=== PATIENT | female | born 1950 | race Caucasian/White ===

== ENCOUNTER 2019-05-20 06:14 | Inpatient (IN) ==
[~2019-05-20 06:14] MED LIST: MORPHINE SULFATE 15 MG TABLET.SA PO PRN; ROPIVACAINE HCL/PF 100 MG, EPINEPHrine 0.2 MG, KETOROLAC TROMETHAMINE 30 MG in NORMAL S... IJ PRN; TRANEXAMIC ACID 1,000 MG in NORMAL SALINE 100 ML IV PRN; ceFAZolin SODIUM 1 GM VIAL IV PRN
[2019-05-20] MEDS: RINGER'S SOLUTION,LACTATED 1,000 ML IV PRN ×3 (07:02→09:00)
--- NOTE | 2019-05-20 07:27 | ANES ---
Anesthesia Pre Procedure Eval Vitals/Labs: Last Vital Signs Temp 36.0 C 05/20/19 06:30 Pulse 70 05/20/19 06:30 Resp 18 05/20/19 06:30 BP 148/78 05/20/19 06:30 Pulse Ox 99 05/20/19 06:30 HOME MEDICATIONS Hydrochlorothiazide [Hydrodiuril] 25 mg PO DAILY 01/31/15 [Last Taken 05/20/19] aspirin 81 mg tablet,delayed release 81 mg PO DAILY 05/16/18 [Last Taken 05/14/19] lisinopril 40 mg tablet 20 mg PO DAILY 05/16/18 [Last Taken 05/20/19] polyethylene glycol 3350 17 gram oral powder packet 17 g PO DAILY 05/16/18 [Last Taken 05/19/19] sucralfate 1 gram tablet 1 g PO DAILY PRN tab 05/16/18 [Last Taken Unknown] metoprolol succinate ER 25 mg tablet,extended release 24 hr 12.5 mg PO DAILY 90 Days #45 tab 05/22/18 [Last Taken 05/20/19] loratadine 10 mg tablet 10 mg PO DAILY 06/05/18 [Last Taken 05/19/19] Esomeprazole Magnesium [Nexium] 40 mg PO DAILY 10/09/18 [Last Taken 05/19/19] ibuprofen 800 mg tablet 800 mg PO BID-TID PRN 04/28/19 [Last Taken Unknown] Allergies/Adverse Reactions: Allergies Allergy/AdvReac Type Severity Reaction Status Date / Time Sulfa (Sulfonamide Allergy RASH Verified 05/20/19 06:31 Antibiotics) adhesive tape AdvReac rash, Verified 05/20/19 06:31 swelling venom-honey bee AdvReac swelling, Verified 05/20/19 06:31 [bee venom (honey bee)] rash - Planned Procedure Planned Procedure: Revision Left Knee Tibial Component Medication List Reviewed:: Yes Allergies Verified: Yes Medical History (Updated 10/21/18 @ 13:48 by Margarita Machuca LPN) Depression GERD (gastroesophageal reflux disease) Hypertension Surgical History (Updated 03/17/19 @ 12:12 by Madie Arriola) S/P trigger finger release Onset Date: Unknown lt ring H/O abdominoplasty H/O arthroplasty [facility] TKA April: left knee Dr. Gale 08/2016 patella H/O arthroscopy of knee Onset Date: ~1990 H/O section Onset Date: ~1973 1976 History of appendectomy History of carpal tunnel release bilateral 2000 History of cholecystectomy Onset Date: ~2004 History of hysterectomy Onset Date: ~1999 S/P left knee arthroscopy Onset Date: ~10/09/18 Dr. Smith: Left knee arthroscopy with partial synovectomy, debridement of lateral meniscus remnant h/o tmj surgery Family History (Last Reviewed 05/20/19 @ 07:26 by Jose Castillo CRNA) Father Alcohol abuse Depression Hypertension CVA (cerebral vascular accident) Asthma Emphysema lung Mother Arthritis Depression Heart disease Cancer Breast Hypertension Asthma Aunt Cancer Breast Grandmother Cancer Maternal breast Grandfather Cancer Brain maternal Brother Diabetes Hypertension - Family Anesthesia History Family History:: no untoward family reactions to anesthesia, no familial bleeding tendencies, no family history of clotting disorders, no family history of premature - Airway/Neck/Teeth Within Normal Limits:: Yes Denture Type: Full upper, Full lower Mallampatti Score: 2 Thyromental (T-M) distance: > 6 cm Mandibulo Hyoid distance: > 3 cm - Respiratory Smoking Status: Never smoker Discussed smoking cessation including day of surgery: No Sleep Apnea currently treated: No Sleep Apnea by current assessment: No Discussed Risks/Treatment of KESHAWN: No - Cardiovascular Tolerate Activity: Fair Heart Sounds: S1 & S2, Regular - Anesthesia Assessment and Plan ASA Class: PS, II Anesthesia Type Plan: Block - Left ultrasound guided adductor canal nerve block for postop analgesia, Spinal
[2019-05-20] MEDS ORDERED: MORPHINE SULFATE 2 MG/ML DISP.SYRIN IV PRN (10:02)
[2019-05-20] MEDS ORDERED: ONDANSETRON HCL/PF 2 MG/ML VIAL IV PRN (10:02)
[2019-05-20] MEDS ORDERED: MAG HYDROX/ALUMINUM HYD/SIMETH 30 ML UDC PO PRN (10:02)
[2019-05-20] MEDS ORDERED: MAGNESIUM HYDROXIDE 30 ML UDC PO PRN (10:02)
[2019-05-20] MEDS ORDERED: ZOLPIDEM TARTRATE 5 MG TABLET PO PRN (10:02)
[2019-05-20] MEDS ORDERED: ACETAMINOPHEN 500 MG TABLET PO PRN (10:02)
[2019-05-20] MEDS ORDERED: SUCRALFATE 1 G TABLET PO PRN (10:04)
--- NOTE | 2019-05-20 10:12 | OR ---
Operative Report - Dictated Report Narrative: DATE OF PROCEDURE: 05/20/2019 PHYSICIAN: Justus Smith MD COMMUNICATIONS ASSISTANT: Cole Ortega MD (provided an educated set of skilled hands that consisted with transfer, positioning, prepping, draping, traction, manipulation, irrigation, placement of implants, placement of instruments, closure of wounds, application of dressings, all of which could not be performed by the available surgical crew). PREOPERATIVE DIAGNOSIS: Pain, status post left total knee arthroplasty. POSTOPERATIVE DIAGNOSIS: Pain, status post left total knee arthroplasty. OPERATIONS AND PROCEDURES: Revision left tibial component, revision of surgical scar 24 cm. ANESTHESIA: Spinal plus regional plus periarticular local. ESTIMATED BLOOD LOSS: Minimal TOURNIQUET TIME: 110 minutes at 325 mmHg. SPECIMENS: Implants for disposal, tissue for acute inflammation, culture x1. COMPLICATIONS: None. RETAINED IMPLANTS: DePuy Attune size 5 revision cemented tibial baseplate rotating platform, revision tibial sleeve Porocoat fully coated 45 mm, revision press-fit stem 16 mm x 60 mm, Attune rotating platform insert size 6 x 10 mm crosslinked polyethylene. INDICATIONS FOR PROCEDURE: Mrs. Anaya is a 68-year-old female who underwent a rotating platform left total knee arthroplasty in the past at an outside facility. At the time she did not have a patella resurfaced and this was subsequently resurfaced that a second surgery. She continued to have persistent tibial knee pain which failed all conservative treatments. She was seen in clinic and was noted to have no instability or signs of malalignment. Radiographs were negative for loosening and she had a negative work-up for infection. Options for treatment were discussed including bracing, observation, and surgical revision. She wished to proceed with revision. The risks, benefits, and alternatives were discussed in clinic. The risk of , blood clots, bleeding, infection, nerve/tendon/blood vessel injury, malposition of implants, persistent pain, failure of implants, loosening, stiffness, need for additional procedures, and she wished to proceed. Consent was obtained in the clinic. PROCEDURE: After marking the correct extremity in the preoperative holding area, the patient was taken to the operating room. A timeout was performed. IV antibiotics consisting of Ancef was administered prior to procedure. A regional followed by spinal anesthetic was induced at my request by anesthesia. A Bolanos catheter was placed and a bump was placed under the left buttock. A well-padded tourniquet was applied to the left thigh. Left leg was then prepped and draped in standard sterile fashion. She was noted to have range of motion was 0 to 120 of flexion. After prepping and draping the leg in standard sterile fashion, exsanguinating the extremity and inflating the tourniquet to 325 mmHg, a previous anterior incision was excised over a length of 24 cm. Sharp dissection was carried through the skin. There were retained nonabsorbable sutures which were removed. The medial retinaculum was marked out and a paramedial arthrotomy was made. There was notable effusion, but no gross signs of purulence or infectious appearing tissues. A partial synovectomy was performed. The scar tissue was excised. The gutters were cleaned, and the previous polyethylene was excised. The knee was hyperflexed and attention was turned to the tibia. A series of osteotomes and saw was utilized in order to free the tissue to best of our abilities. The tibia was then removed. The implants revealed no signs of significant wear or damage. The entry reamer up to a size 16 tibial reamer was utilized in order to repair the tibial canal. An entry reamer for the implant as well as up to a 45mm broach was utilized which gave good stability with good fill of the proximal tibial metaphysis. The proximal tibia was then cleaned and cut in order to provide a flat surface. There was some mild disruption of the posterior and lateral bony cortical rinds, but an intact defect without any blowout of these areas. The trial tray size 5 was then impacted with the trial sleeve and this was secured with a punch. A series of inserts were utilized up to a size 10, which gave good stability in flexion and was able to reach maximal extension without hyperextension, stable to varus and valgus stressing as well as drawer. The patella tracked appropriately and overall, although there was some bone overhanging the lateral facet which was excised using the saw. At this point it was felt these were the appropriate implants. The implants were removed. The tissue was thoroughly irrigated with pulsatile saline irrigation. Prior to this, the tissue was sent to pathology for acute inflammation, was noted to have less than 5 neutrophils per high-powered field, and culture was also obtained and sent to pathology. Once the bone was thoroughly irrigated and dried, a periarticular joint injection of ropivacaine, Toradol, and epinephrine was placed. The cement was vacuum mixed per bid analyst's instructions. The implants were assembled on the back table, and cement was placed on the appropriate surfaces, avoiding any cement on the ingrown surface or the stems, and the implants were then impacted. Once the deena ent was fully cured, the extruded cement was removed. The final polyethylene insert was placed. The knee was again placed through range of motion and was able to reach full extension, flexion 120 degrees with appropriate tracking of the patella, and no instability. A drain was placed exiting superolaterally. The tourniquet was deflated. Hemostasis was obtained. Capsule was closed with interrupted #1 Vicryl. The deep tissues with 0 Vicryl, subcutaneous tissue with 3-0 Vicryl and 3-0 Monocryl, and the skin with a Preineo Dermabond dressing. A 4 x 4s, Sof-Rol and a full leg Layton was applied and the patient was awoken and transferred to postanesthesia care unit in stable condition. All sponge, needle, and instrument counts were correct prior to closing the wounds.
--- NOTE | 2019-05-20 10:23 | ANES ---
Post Anesthesia Discharge - Transfer of Care Transfer of Care handoff given to nurse: Yes - Discharge from PACU Discharge from PACU when meets criteria: Yes - Discharge to ASU Discharge to ASU-no complications/pt stable: Yes
--- NOTE | 2019-05-20 10:26 | ANES ---
Anesthesia Procedure Note Procedure Note: ANESTHESIA PROCEDURE NOTE Date of Procedure: 05/20/2019. Time of procedure: 729. Performed by: Jose Castillo CRNA [employer]: None. Preprocedure diagnosis: Left knee pain, status post left total knee arthroplasty. Post procedure diagnosis: Same. Procedure: Left ultrasound guided adductor canal block for postoperative analgesia. Indications: The patient is a 68-year-old female, requesting left ultrasound- guided abductor canal block for postoperative analgesia related to revision left tibial component. Findings: See below. Details of the procedure: The tissue over the intended target site was cleansed with ChloraPrepand draped in a sterile fashion. 2 ml Lidocaine 1 % was infiltrated to the skin and subcutaneous tissue at the intended target site. Under sterile technique and ultrasound guidance a 18-gauge Tuohy needle was inserted through the left sartorius muscle to the saphenous nerve just anterior and medial to the superficial femoral artery and vein. 15 mL's of 0.5% bupivacaine was injected after negative aspiration for blood. Needle tip and spread of local anesthetic surrounding the saphenous nerve was observed throughout the injection with real time ultrasound visualization. The Tuohy needle was then removed intact. No complications were noted. The images were retained in the Hospital medical database. EBL: Minimal. Fluids: N/A. Specimen: N/A. Post procedure condition: The patient tolerated the procedure well. No complications were noted. Thank you for this consultation. Jose Castillo CRNA
[2019-05-20] MEDS: DEXTROSE 5%-LACTATED RINGERS 1,000 ML IV PRN ×2 (11:02→20:20)
[2019-05-20] MEDS: ceFAZolin SODIUM 1 GM in DEXTROSE 5 % IN WATER 100 ML IV SCH ×6 (11:06→23:50)
[2019-05-20] MEDS: oxyCODONE HCL/ACETAMINOPHEN 1 TAB TABLET PO PRN ×4 (11:06→22:13)
[2019-05-20] MEDS: KETOROLAC TROMETHAMINE 15 MG/ML VIAL IV SCH ×3 (11:06→23:48)
[2019-05-20] MEDS ORDERED: SENNOSIDES/DOCUSATE SODIUM 1 TAB TABLET PO SCH (21:00)
[2019-05-20] MEDS ORDERED: MORPHINE SULFATE 15 MG TABLET.SA PO SCH (21:00)
[2019-05-21] MEDS: diphenhydrAMINE HCL 50 MG/ML VIAL IV PRN ×2 (02:01→06:31)
[2019-05-21] MEDS: KETOROLAC TROMETHAMINE 15 MG/ML VIAL IV SCH ×2 (04:47→11:55)
[2019-05-21 05:15] LABS: Hematocrit 32.9 % (37.0-47.0); Hemoglobin 10.8 gm/dL (12.5-16.0); Mean Cell Volume 93.2 fl (78-100); Mean Corpuscular Hemoglobin 30.6 pg (27-31); Mean Corpuscular Hgb Conc 32.8 g/dl (32-36); Mean Platelet Volume 9.8 fl (8-12.5); Platelet Count 146 K/mm3 (150-450); Red Blood Count 3.53 M/mm3 (4.2-5.4); Red Cell Distribution Width 12.8 % (11.5-14.0); White Blood Count 5.6 K/mm3 (4.0-10.5)
[2019-05-21 05:30] LABS: Anion Gap 7.6 mmol/L (6.8-13.8); BUN/Creatinine Ratio 9.3 (9.0-21.6); Calcium * 8.4 mg/dL (7.9-10.9); Carbon Dioxide 31.7 mmol/L (24-32.6); Estimated Creat Clear 56.3; Potassium 3.3 mmol/L (3.4-4.6)
[2019-05-21] MEDS: oxyCODONE HCL/ACETAMINOPHEN 1 TAB TABLET PO PRN (06:24)
[2019-05-21] MEDS ORDERED: PANTOPRAZOLE SODIUM 40 MG TABLET.EC PO SCH (07:00)
[2019-05-21] MEDS ORDERED: POTASSIUM CHLORIDE 20 MEQ TABLET.SA PO ONE (08:10)
[2019-05-21] MEDS ORDERED: POLYETHYLENE GLYCOL 3350 17 GM PACKET PO SCH (09:00)
[2019-05-21] MEDS ORDERED: HYDROCHLOROTHIAZIDE 25 MG TABLET PO SCH (09:00)
[2019-05-21] MEDS ORDERED: LISINOPRIL 20 MG TABLET PO SCH (09:00)
[2019-05-21] MEDS ORDERED: LORATADINE 10 MG TABLET PO SCH (09:00)
[2019-05-21] MEDS ORDERED: METOPROLOL SUCCINATE 25 MG TABLET.SA PO SCH (09:00)
[2019-05-21] MEDS ORDERED: ENOXAPARIN SODIUM 40 MG/0.4 ML SYRG SC SCH (09:02)
--- NOTE | 2019-05-21 14:54 | DS ---
(1) Acute blood loss anemia Problem: Acute (2) Status post revision of total replacement of left knee Problem: Acute (3) Hypertension Problem: Chronic (4) GERD (gastroesophageal reflux disease) Problem: Chronic (5) Depression Problem: Chronic Description of Stay: Mrs. Anaya was admitted to the floor after undergoing revision tibial component left total knee arthroplasty. Tolerated this well. Was admitted to the floor postoperatively for 24 hours of IV antibiotics, pain control, medical comanagement, and occupational and physical therapy. OT and PT were consulted to assist with activities of daily living and ambulation. Was made weightbearing as tolerated with range of motion as tolerated. Pain was initially controlled with IV regimen. This was transitioned to oral once tolerating a by mouth intake. Was resumed on home diet and medications. Had a Bolanos catheter inserted and the operating room which was discontinued on postoperative day 1. A drain was placed intraoperatively into the knee which was discontinued on postoperative day 1. Lovenox SCD and NINA hose were utilized for DVT prophylaxis. Vital signs remained stable to the hospital course. Serial labs were obtained which showed a final hemoglobin of 10.8 grams. BMP was reviewed and was stable. Physical examination throughout the hospital course showed an extremity that had sensation that was intact to light touch, palpable pulses, a benign wound, motor intact to the toes, ankle, and knee. Knee range of motion was approximately 5 degrees to 60 degrees. Once an oral pain regimen was tolerated and physical therapy goals were met, it was felt that they were stable for discharge to home. Instructions: Continue with weightbearing as tolerated and range of motion as tolerated. It is OK to shower on the wound if it is not draining. If you note any drainage or for comfort you can cover with dry gauze and tape. Change every 2-3 days as needed. Continue with physical therapy. Resume home diet. Report any fever over 101.5 Fahrenheit, uncontrolled pain, increased drainage, foul odor of drainage, new or increased calf pain or shortness of breath, or any other significant complaints. A 325mg dialy aspirin will be started after finishing anticoagulation if not allergic. Continue with NINA hose on the operative extremity until instructed otherwise. No driving until instructed otherwise. Follow up in approximately 10-14 days. Procedures Performed: see notes below List Procedures: Revision tibial component left total knee [facility] and Findings[facility] Knee - Left Surgical Culture - Preliminary No Growth Lab Pending Results 05/21/19 05:10: WBC 5.6, RBC 3.53 L, Hgb 10.8 L, Hct 32.9 L, MCV 93.2, MCH 30.6, MCHC 32.8, RDW 12.8, Plt Count 146 L, MPV 9.8 05/21/19 05:10: Sodium 139, Plasma Sodium 139, Potassium 3.3 L, Chloride 103, Carbon Dioxide 31.7, Anion Gap 7.6, BUN 8, Creatinine 0.86, Est GFR (Non-Af Amer) 70, BUN/Creatinine Ratio 9.3, Random Glucose 95, Calcium 8.4 Discharge Location: Home Disposition: Home self-care Condition: Good Discharge Activity: Activity as tolerated, Weight bearing, Other - With wheeled walker Discharge Diet: Low salt Referrals: Hay Cain DO [Primary Care Provider] - Justus Smith MD [Staff Physician] - 06/09/19 1:15 pm Additional Patient Instructions (free text): Follow up scheduled in the office with Dr. Smith on 06/09/19 at 1:15pm. Prescriptions (Any new or edited meds): Enoxaparin Sodium [Lovenox] 40 mg SC Q24H #7 disp.syrin oxyCODONE HCL/ACETAMINOPHEN [Percocet 5 MG/325 MG] 2 tab PO Q4H PRN #60 tab PRN Reason: Moderate Pain (Pain Scale 4-6) Sennosides/Docusate Sodium [Senokot-S] 2 tab PO HS #30 tab Complete Home Medications List: Complete Home Medication List: Hydrochlorothiazide [Hydrodiuril] 25 mg PO DAILY 01/31/15 aspirin 81 mg tablet,delayed release 81 mg PO DAILY 05/16/18 lisinopril 40 mg tablet 20 mg PO DAILY 05/16/18 polyethylene glycol 3350 17 gram oral powder packet 17 g PO DAILY 05/16/18 sucralfate 1 gram tablet 1 g PO DAILY PRN tab 05/16/18 metoprolol succinate ER 25 mg tablet,extended release 24 hr 12.5 mg PO DAILY 90 Days #45 tab 05/22/18 loratadine 10 mg tablet 10 mg PO DAILY 06/05/18 Esomeprazole Magnesium [Nexium] 40 mg PO DAILY 10/09/18 ibuprofen 800 mg tablet 800 mg PO BID-TID PRN 04/28/19 Enoxaparin Sodium [Lovenox] 40 mg SC Q24H #7 disp.syrin 05/21/19 Sennosides/Docusate Sodium [Senokot-S] 2 tab PO HS #30 tab 05/21/19 oxyCODONE HCL/ACETAMINOPHEN [Percocet 5 MG/325 MG] 2 tab PO Q4H PRN #60 tab 05/21/19 Amb Orders for Discharge: PT Evaluation and Treatment* Facility: [facility], Location: Rehabilitation Services
[2019-05-21 15:51] VITALS: BP 125/72
== END 2019-05-21 15:44 | disposition home or self-care (01) | DRG 467 ==
LOC: MS 06:14
PROVIDERS: ADMIT Orthopaedic Surgery; ATTEND Orthopaedic Surgery
DX: F32.9 Major depressive disorder, single episode, unspecified; T84.84XA Pain due to internal orthopedic prosthetic devices, implants and grafts, initial encounter; Y79.3 Surgical instruments, materials and orthopedic devices (including sutures) associated with adverse incidents; K21.9 Gastro-esophageal reflux disease without esophagitis; D62 Acute posthemorrhagic anemia; I10 Essential (primary) hypertension
CPT/HCPCS: 36415; 73560; 80048; 85027; 87070; 87075; 88305; 88331; 97110; 97116; 97161; 97165; J2405